=== PATIENT | male | born 1945 | race Hispanic/Latino ===

== ENCOUNTER 2018-02-17 00:58 | Inpatient (IN) | payer OTHER ==
[~2018-02-17] VITALS: Ht 167.6 cm; Wt 85.4 kg
[~2018-02-17 00:58] MED LIST: FERRALET 90 TA1 EACH PO; LISINOPRIL10 M1 PO; PRILOSEC OTC20 M1 PO
[2018-02-17 08:56] LABS: ABSOLUTE BASOPHIL COUNT 0.2 /CUMM (0.0-0.2); ABSOLUTE EOSINOPHIL COUNT 0.1 /CUMM (0.0-0.7); ABSOLUTE GRANULOCYTE CT 2.9 /CUMM (1.4-6.5); ABSOLUTE LYMPH COUNT 2.3 /CUMM (1.2-3.4); ABSOLUTE MONOCYTE COUNT 0.5 /CUMM (0.10-0.60); BASOPHIL % 3.6 % (0.0-2.0); EOSINOPHIL % 1.9 % (0-5); GRANULOCYTE % 48.3 % (42.2-75.2); HEMATOCRIT 39.5 % (42-52); MEAN CORPUSCULAR HGB 28.6 PG (27.0-31.0); MEAN CORPUSCULAR HGB CONC 33.1 G/DL (33.0-37.0); MEAN CORPUSCULAR VOLUME 86.5 FL (80.0-94.0); MEAN PLATELET VOLUME 9.3 FL (7.4-10.4); PLATELET COUNT 223 /CUMM (130-400); RBC DISTRIBUTION WIDTH 22.1 % (11.5-14.5); RED BLOOD CELL CT 4.57 /CUMM (4.70-6.10); WHITE BLOOD CELL COUNT 5.9 /CUMM (4.8-10.8)
--- NOTE | 2018-02-17 12:18 | Admission Core Measures ---
Acute Coronary Syndrome (CM) ACS Core Measures Acute Coronary Syndrome Diagnosis No Congestive Heart Failure (NEW) CHF Core Measures Congestive Heart Failure Diagnosis No Cerebrovascular Accident CVA Core Measures CVA/TIA Diagnosis No Venous Thromboembolism VTE Core Pal (View Protocol) VTE Risk Factors Surgery No Mechanical VTE Prophylaxis d/t N/A MechProphylax Ordered No VTE Pharm Prophylaxis d/t NA PharmProphylax ordered Problem List As ranked by this Provider includes Assessment & Plan 1. Status post Nghia fundoplication 2. GERD (gastroesophageal reflux disease) 3. Hypertension 4. Paraesophageal hiatal hernia HOME MEDS Home Med List Iron Carb,Gl/FA/B12/C/Docusate (Ferralet 90 Tablet) 90 MG-1 MG-12 MCG-120 MG-50 MG TABLET 1 TAB PO DAILY anemia (Reported) Lisinopril 10 MG TABLET 1 TAB PO DAILY htn (Reported) Omeprazole Magnesium (Prilosec Otc) 20 MG TABLET.DR 1 TAB PO DAILY hiatal hernia (Reported)
--- NOTE | 2018-02-17 16:21 | Operative Report ---
Operative/Inv Procedure Report Surgery Date: 02/17/18 Name of Procedure: Robotic assisted laparoscopic hiatal hernia repair with mesh and Nghia fundoplication. Pre-Operative Diagnosis: Hiatal hernia GERD Post-Operative Diagnosis: Hiatal hernia GERD Polycystic liver disease Estimated Blood Loss: less than 50ml Surgeon/Alarm Adjuster: Guero FRIEDMAN,Nader Gonzalez/Maru COX Anesthesia: general endotracheal tube Implants: [employer] a Specimens: Hernia sac Operative Indication: This is a 72-year-old male with medically refractory GERD was found to have a large, type III hiatal hernia. He presents for elective repair Operative/Procedure Note Note: After consent patient brought to the operating room laid supine. General anesthesia obtained and his abdomen was prepped and draped. Skin in the left upper quadrant was infiltrated local anesthesia and pneumoperitoneum was achieved through a varees needle at Castrejon's point. Next a 8 mm port was placed percutaneously through the left midabdomen and the abdomen explored. We immediately noted that there was diffuse hepatic cysts throughout both lobes. On the left lobe hanging over the hiatus was a very large cyst. I was concerned that we could not get adequate visualization. We placed 2 more 8 mm ports in the left midabdomen and a 12 mm port in the right midabdomen after local anesthesia instilled under direct vision a camera. A 5 mm stab incision was made in the epigastrium through which the Neeta retractor was placed. The liver edge was elevated and it was clear that we could proceed. The robot was then docked and instruments placed. Began my dissection on the left crura as the right side was difficult to visualize due to the overhanging cyst. Using scissor cautery we got into the plane around the sac and took around anterior and into the right crura. We then went back and forth dissecting through that plane and up into the mediastinum to deliver the hernia sac. Posteriorly we dissected both crura and then got around circumferentially. A Bradford drain was then placed to aid in retraction. The mediastinum was then dissected and esophagus mobilized just past the right atrium. Both vagus nerves were identified and preserved. After completing the dissection we could see that there was plenty of intra-abdominal esophagus. The sac was excised using the vessel sealer. I took down the short gastrics with the vessel sealer. During the dissection a small hole was made in that overhanging cyst. I elected to drain it completely by incising a hole into it and suction irrigating it out. It was composed of serous fluid. This allowed better visualization. Next the crura were closed with a running 0V lock nonabsorbable suture. The apex of the closure was reinforced with a interrupted 0 Tycron suture. Next fundoplication was performed by passing the fundus posteriorly and then wrapped around anteriorly. Shoeshine maneuver was performed. The fundus was anchored to itself anteriorly with interrupted 2-0 Tycron suture. 2 more sutures then placed inferiorly both incorporating the anterior portion of the esophagus to keep it fixated. Bradford drain was then removed. Lastly, a piece of [employer] bio a mesh was placed into the cavity. It was wrapped posteriorly and covered the suture line. All needles, hernia sac and sponges were extracted and passed off the field. Liver retractor was then removed and instruments extracted passed off the field. The fascia in the right midabdomen was closed with interrupted 0 Vicryl suture. Skin incisions closed with 4-0 Vicryl. Steri-Strips and sterile dressing were applied. Sponge and needle counts are correct Findings: Polycystic liver disease CC: Noah FRIEDMAN,Charlie Alas; Princess FRIEDMAN,Herbert Witt
--- NOTE | 2018-02-17 16:36 | Patient Discharge Instructions ---
Discharge Instructions General Discharge Information You were seen/treated for: hiatal hernia You had these procedures: robotic-assisted laparoscopic hiatal hernia repair with alice fundoplication Watch for these problems: fever>101, worsening pain despite pain meds, inability to tolerate food/drink, inability to pass flatus/bm Special Instructions: Keep wounds clean and dry. You may remove bandaids and shower 48hr after surgery- do not soak wounds, no tub baths/swimming. Watch for signs of wound infection (drainage/redness). Keep steri-strips in place, adhesive will self dissolve. Diet Recommended Diet: fundoplication 1 diet Activity Full Activity/No Limits: No Activity Self Limited: Yes Acute Coronary Syndrome Inclusion Criteria At DC or during hospital stay patient has or had the following: ACS DIAGNOSIS No Discharge Core Measures Meds if any: Prescribed or Continued at Discharge Meds if any: NOT Prescribed or Continued at Discharge Congestive Heart Failure Inclusion Criteria At DC or during hospital stay patient has or had the following: CHF DIAGNOSIS No Discharge Core Measures Meds if any: Prescribed or Continued at Discharge Meds if any: NOT Prescribed or Continued at Discharge Cerebrovascular accident Inclusion Criteria At DC or during hospital stay patient has or had the following: CVA/TIA Diagnosis No Discharge Core Measures Meds if any: Prescribed or Continued at Discharge Meds if any: NOT Prescribed or Continued at Discharge Venous thromboembolism Inclusion Criteria VTE Diagnosis Yes VTE Type NONE VTE Confirmed by (Test) NONE Discharge Core Measures - Per Current guidelines, there needs to be overlap - treatment for the first 5 days of Warfarin therapy. - If discharged on Warfarin prior to 5 days of - overlap therapy, the patient will need to be - assessed for post discharge needs including - *Post discharge parental anticoagulation - *Warfarin and/or parental anticoagulation education - *Follow up date to check INR post discharge At least 5 days overlap therapy as Inpatient No Meds if any: Prescribed or Continued at Discharge Note: Overlap Therapy is Warfarin and Anticoagulant Meds if any: NOT Prescribed or Continued at Discharge
[2018-02-17 18:00] VITALS: BP 138/84
--- NOTE | 2018-02-17 19:51 | PN- General Surgery ---
Subjective Subjective: POC feeling ok, some incisional pain. no n/v/belching. taking in some clears. no oob postop, due to void postop. no cp/sob. Objective Vital Signs and I&Os Vital Signs Date Time Temp Pulse Resp B/P B/P Pulse O2 O2 Flow FiO2 Mean Ox Delivery Rate 02/17 1800 93 Nasal 3.0L Cannula 02/17 1800 97.5 86 18 138/84 93 Nasal 3.0L Cannula Physical Exam: gen- nad card-s1s2 rrr pulm- ctab abd- obese, soft, ttp at incisions, incisions dressed- cdi. ext- calves soft nt bl, alps on Assessment/Plan Assessment/Plan A- POD0 sp robo-assisted HH repair w mesh with alice fundoplication, stable with appropriate postop pain, due to void postop (manriquez out at end of case). P- fundo stage 1 diet as tolerated prn pain meds, antiemetics oob, ambulate alps, hepsq am labs dtv postop dc planning Core Measures Venous Thromboembolism VTE Risk Factors Surgery No Mechanical VTE Prophylaxis d/t N/A MechProphylax Ordered No VTE Pharm Prophylaxis d/t NA PharmProphylax ordered
[2018-02-17 21:45] VITALS: BP 156/104
[2018-02-17 22:05] VITALS: BP 141/82
[2018-02-18 00:03] VITALS: BP 144/80
[2018-02-18 04:00] VITALS: BP 132/84
--- NOTE | 2018-02-18 05:54 | PN- Student ---
Bronwyn Rodrigues 02/18/18 0545: Subjective Subjective: Some incisional pain, tolerated well, otherwise no complaints. No n/v/belching. Taking in some clears, voided 3 times. No flatus or BM. No oob postop, no incentive spirometry yet. No cp/sob/fever/chills. Objective Objective: Physical Exam: gen- nad card-s1s2 rrr pulm- ctab abd- obese, soft, ttp at incisions, incisions dressed- cdi. ext- calves soft nt bl, alps on, no edema, DP/PT pulses 2+ Exam & Diagnostic Data Vital Signs and I&O Vital Signs Date Time Temp Pulse Resp B/P B/P Pulse O2 O2 Flow FiO2 Mean Ox Delivery Rate 02/18 0400 98.1 69 18 132/84 90 02/18 0003 97.6 81 18 144/80 94 02/18 0000 97 Nasal 3.0L Cannula 02/17 2205 97.9 76 18 141/82 93 Room Air 02/17 2145 97.6 73 19 156/104 97 Room Air 02/17 1800 93 Nasal 3.0L Cannula 02/17 1800 97.5 86 18 138/84 93 Nasal 3.0L Cannula Intake & Output 02/18 0800 02/18 0000 02/17 1600 02/17 0800 02/17 0000 02/16 1600 Intake Total 600 Output Total 600 600 Balance -600 0 Intake, IV 400 Intake, Oral 200 Output, Urine 600 600 Patient 189 lb Weight Weight Bed scale Measurement Method Assessment/Plan Assessment: A- 72 y/o M w/ PMH of hiatal hernia, HTN, and GERD is POD#1 sp robo-assisted HH repair w mesh with alice fundoplication, stable with appropriate postop pain, waiting to have flatus/BM postop. P- fundo stage 1 diet as tolerated prn pain meds, antiemetics oob, ambulate alps, hepsq dt pass flatus dc planning Nader Jack MD 02/18/18 0830: Attending MD Review Statement Attending Sign Off Attending Cosign Statement: I have: examined this patient. Other Findings: patient recovering as expected. dicharge today on fundoplicaton diet. Dietary instruction. f/u 2 weeks as arranged.
[2018-02-18 06:15] VITALS: BP 110/70
[2018-02-18] MEDS ORDERED: OXYCODONE HCL5 M1 PO (09:20)
[2018-02-18 10:06] LABS: ABSOLUTE BASOPHIL COUNT 0 /CUMM (0.0-0.2); ABSOLUTE EOSINOPHIL COUNT 0 /CUMM (0.0-0.7); ABSOLUTE GRANULOCYTE CT 12.5 /CUMM (1.4-6.5); ABSOLUTE LYMPH COUNT 0.6 /CUMM (1.2-3.4); ABSOLUTE MONOCYTE COUNT 0.7 /CUMM (0.10-0.60); BASOPHIL % 0.3 % (0.0-2.0); EOSINOPHIL % 0 % (0-5); HEMATOCRIT 36.5 % (42-52); MEAN CORPUSCULAR HGB 27.7 PG (27.0-31.0); MEAN CORPUSCULAR VOLUME 86.6 FL (80.0-94.0); MEAN PLATELET VOLUME 10.7 FL (7.4-10.4); PLATELET COUNT 179 /CUMM (130-400); RED BLOOD CELL CT 4.21 /CUMM (4.70-6.10)
[2018-02-18 10:07] VITALS: BP 136/69
[2018-02-18 10:16] LABS: WHITE BLOOD CELL COUNT 13.9 /CUMM (4.8-10.8)
--- NOTE | 2018-02-18 11:28 | Surg Short-stay <48hrs Dis Sum ---
Visit Information Visit Dates Admission Date: 02/17/18 Discharge Date: 02/18/18 Surgical Short Stay DC Summary Admission Diagnosis: hiatal hernia with GERD Final Diagnosis: same Polycystic liver disease Procedure(s): Robotic assisted laparoscopic hiatal hernia with mesh and Nghia fundoplication. Summary/Significant Findings: none Condition at Discharge: good Discharge Disposition: home or self care Discharge instructions provided to patient/family: Yes Post discharge follow-up plan: two weeks Copies to: Noah FRIEDMAN,Charlie Sánchez MD,Herbert Witt
== END 2018-02-18 10:40 | DRG 327 ==
LOC: STS 00:58 → PACUH 11:14 → ENRESERV 16:38 → ENTRNSPT 17:41 → EDTRNSPT 17:46 → EDTRNSPTSTS 17:46 → CMPTRNSPT 18:02 → 2NB 18:11 → ENPENDDIS 02-18 10:24 → ENTRNSPT 02-18 10:25 → EDTRNSPT 02-18 10:33 → EDTRNSPTSTS 02-18 10:33 → 2NB 02-18 10:40 → CMPTRNSPT 02-18 10:42
PROVIDERS: Physician Assistant; Surgery
PROC: 0DV44ZZ Restriction of Esophagogastric Junction, Percutaneous Endoscopic Approach (ICD-10-PCS; principal; 2018-02-17)
PROC: 8E0W4CZ Robotic Assisted Procedure of Trunk Region, Percutaneous Endoscopic Approach (ICD-10-PCS; principal; 2018-02-17)
PROC: 0BUT4JZ Supplement Diaphragm with Synthetic Substitute, Percutaneous Endoscopic Approach (ICD-10-PCS; principal; 2018-02-17)
PROC: 3E0T3BZ Introduction of Anesthetic Agent into Peripheral Nerves and Plexi, Percutaneous Approach (ICD-10-PCS; principal; 2018-02-17)
DX: K44.9 Diaphragmatic hernia without obstruction or gangrene (principal); Q44.6 Cystic disease of liver; K21.9 Gastro-esophageal reflux disease without esophagitis; I10 Essential (primary) hypertension; D64.9 Anemia, unspecified
CPT/HCPCS: 2NBSP; 36415; 36592; 82436; 87086; 93005; 93010; C1781; J0131; J0690; J1644; J2250; J7042